=== PATIENT | female | born 1965 | race Caucasian/White ===

== ENCOUNTER 2016-09-08 12:58 | Emergency (ER) | payer BC ==
[2016-09-08 13:18] VITALS: TEMP 97.9; BMI 22.1
[2016-09-08] MEDS ORDERED: METOCLOPRAMIDE HCL INJECTION 10 MG/2 ML VIAL IVPUSH ONE (13:47)
[2016-09-08] MEDS ORDERED: SODIUM CHLORIDE 1,000 ML IV STA (13:47)
--- NOTE | 2016-09-08 13:52 | PDOC ---
History of Present Illness - General Chief Complaint: Migraine Headache Stated Complaint: HEADACHE Time Seen by Provider: 09/08/16 13:35 History Source: Patient Exam Limitations: No Limitations - History of Present Illness Initial Comments: 09/08/16 13:51 Patient is a 51 year old female with PMH of migraine headaches who presents to ED with headache. Patient has had headache for last 5 days, increasing in severity. The pain is concentrated at her left temporal region, with shooting pains down towards the back of her head, ears and "back of my throat". She has mild photophobia, but better than with her usual migraines. She is concerned because usual migraines (which she has had for 40 years) are diffuse, not as severe and last <3 days. She usually has aura symptoms as well (severe photophobia, smells, dark spots), but does not at present. 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 Denies fever, chills, abdominal pain, changes in BM, visual changes or shortness of breath. Past History - Travel Traveled outside of the country in the last 30 days: No Close contact w/someone who was outside of country & ill: No - Past Medical History Allergies/Adverse Reactions: Allergies Allergy/AdvReac Type Severity Reaction Status Date / Time No Known Allergies Allergy Verified 09/08/16 13:14 Home Medications: Ambulatory Orders Rizatriptan Benzoate [Maxalt] 10 mg PO TID 09/08/16 Other medical history: Migraines - Family Disease History Family Disease History: Other: Father (migraines), Mother (migraines) - Immunization History Immunization Up to Date: Yes - Psycho/Social/Smoking Cessation Hx Suicidal Ideation: No Smoking History: Never smoked Hx Alcohol Use: No Drug/Substance Use Hx: No Review of Systems - Review of Systems Able to Perform ROS?: Yes Is the patient limited Mongolian proficient: No Constitutional: No: Chills, Fever, Weakness HEENTM: No: Eye Pain, Blurred Vision, Tearing, Recent change in vision, Ear Pain , Ear Discharge, Throat Pain, Difficulty Swallowing Respiratory: Yes: Cough. No: SOB with Exertion, Wheezing, Productive cough Cardiac (ROS): No: Chest Pain, Edema, Lightheadedness ABD/GI: Yes: Nausea. No: Constipated, Diarrhea, Vomiting : No: Burning, Dysuria Musculoskeletal: No: Back Pain, Muscle Weakness Integumentary: No: Bruising, Change in Color, Erythema Neurological: Yes: Headache. No: Numbness, Paresthesia, Seizure, Tingling, Tremors, Unsteady Gait All Other Systems: Reviewed and Negative *Physical Exam - Vital Signs Last Vital Signs Temp Pulse Resp BP Pulse Ox 97.9 F 86 16 147/75 100 09/08/16 13:14 09/08/16 13:14 09/08/16 13:14 09/08/16 13:14 09/08/16 13:14 - Physical Exam General Appearance: Yes: Nourished, Appropriately Dressed HEENT: positive: EOMI, ARTURO, Pharynx Normal, Other (no sinus tenderness, no rhinorrhea, no tearing at either eye) Neck: positive: Trachea midline, Normal Thyroid, Supple Respiratory/Chest: positive: Lungs Clear, Normal Breath Sounds Cardiovascular: positive: Regular Rhythm, Regular Rate, S1, S2 Gastrointestinal/Abdominal: positive: Normal Bowel Sounds, Flat, Soft Musculoskeletal: positive: Normal Inspection Extremity: positive: Normal Inspection, Normal Range of Motion Integumentary: positive: Normal Color, Dry, Warm 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 Ordered IVF 1 liter, Reglan and NC O2. 09/08/16 15:[address] (-) for any acute pathology or sinusitis. Headache has improved, but only mildly. Will give Imitrex and re-assess in a half hour. 09/08/16 16:35 Patient states pain resolved with Imitrex SQ shot. Will discharge with instructions to f/u with her neurologist. *DC/Admit/Observation/Transfer Diagnosis at time of Disposition: Migraine headache - Discharge Dispostion Disposition: HOME Condition at time of disposition: Improved Admit: No - Patient Instructions Additional Instructions: Followup with your neurologist/headache specialist Stay hydrated and return to regular migraine regimen once home.
[2016-09-08] MEDS ORDERED: METOCLOPRAMIDE HCL INJECTION 10 MG/2 ML VIAL ONE (14:05)
--- NOTE | 2016-09-08 14:05 | PDOC ---
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 Patient had gradual onset of her classic migraine beginning 5 days ago. Her migraines typically last 2-3 days and she was taking her usual ibuprofen and Maxalt with some relief. Since yesterday, her overall migraine has improved but she now presents for evaluation of lancinating and sharp left temporal headaches that are intermittent. No fevers or chills, no trauma, no focal neurological deficits. - Physicial Exam PE: 09/08/16 14:04 Afebrile here. 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 No evidence of infection. CT head IV fluids, oxygen, Reglan Reassess and dispo accordingly
[2016-09-08] MEDS ORDERED: SUMAtriptan SUCCINATE 50 MG TABLET PO SCH (16:00)
[2016-09-08] MEDS ORDERED: SUMAtriptan SUCCINATE 50 MG TABLET ONE (16:04)
[2016-09-08] MEDS ORDERED: SUMATRIPTAN SUCCINATE 6 MG/0.5 ML VIAL SQ ONE (16:05)
[2016-09-08] MEDS ORDERED: SUMATRIPTAN SUCCINATE 6 MG/0.5 ML VIAL ONE (16:06)
[2016-09-08 17:11] VITALS: BP 136/72; PULSE 82
== END 2016-09-08 17:12 | disposition home or self-care (01) ==
LOC: JER 12:58
PROC: 3E033GC Introduction of Other Therapeutic Substance into Peripheral Vein, Percutaneous Approach (ICD-10-PCS; principal; 2016-09-08)
PROC: 3E0337Z Introduction of Electrolytic and Water Balance Substance into Peripheral Vein, Percutaneous Approach (ICD-10-PCS; 2016-09-08)
DX: G43.909 Migraine, unspecified, not intractable, without status migrainosus (principal)
CPT/HCPCS: 70450-TC; 84703; 99282-25

== ENCOUNTER 2018-10-08 17:26 | Emergency (ER) | payer BC ==
[2018-10-08 17:39] VITALS: BMI 23.9
[2018-10-08] MEDS ORDERED: ONDANSETRON 4 MG/2 ML VIAL IVPB ONE (18:03)
[2018-10-08] MEDS ORDERED: SODIUM CHLORIDE 1,000 ML IV STA ×2 (18:04→19:28)
[2018-10-08] MEDS ORDERED: ONDANSETRON 4 MG/2 ML VIAL ONE (18:29)
--- NOTE | 2018-10-08 18:30 | PDOC ---
History of Present Illness - General Chief Complaint: Nausea/Vomiting Stated Complaint: SENT BY PCP/VOMITING/WEAKNESS Time Seen by Provider: 10/08/18 18:01 - History of Present Illness Initial Comments: 10/08/18 18:29 53 yo F with h/o migraine disorder who p/w nausea, vomiting, and myalgias. Patient reports acute onset of widespread myalgias/muscle aches, diffuse frontal , non pulsating headache, and 2 episodes of NBNB emesis. Symptom onset while at work. No identifiable triggers or alleviators. Headache not typical of regular headaches. Patient denies PARADA, vision change, palpitations, cough, wheezing, orthopena, PND , leg swelling/pain, N/V, F,C, CP, SOB, urinary complaints, hematuria, BPR, abdominal pain, diarrhea, constipation, lightheadedness, weakness, sensory changes. PMHx: as noted above ROS: as noted SHx: Denies IVDA Allergies: NKDA Past History - Past Medical History Allergies/Adverse Reactions: Allergies Allergy/AdvReac Type Severity Reaction Status Date / Time No Known Allergies Allergy Verified 10/08/18 17:39 Home Medications: Ambulatory Orders Bupropion HCl [Wellbutrin Sr] 200 mg PO DAILY 10/08/18 [place] Carbonate [Eskalith -] 750 mg PO DAILY 10/08/18 Pantoprazole Sodium 40 mg PO DAILY 10/08/18 COPD: No - Family Disease History Family Disease History: Other: Father (migraines), Mother (migraines) - Immunization History Immunization Up to Date: Yes - Suicide/Smoking/Psychosocial Hx Smoking History: Never smoked Hx Alcohol Use: No Drug/Substance Use Hx: No Review of Systems - Review of Systems Comments:: 10/08/18 18:29 GENERAL/CONSTITUTIONAL: No fever or chills. No weakness. HEAD, EYES, EARS, NOSE AND THROAT: No change in vision. No ear pain or discharge. No sore throat. CARDIOVASCULAR: No chest pain or shortness of breath RESPIRATORY: No cough, wheezing, or hemoptysis. GASTROINTESTINAL: +nausea, vomiting. No diarrhea or constipation. GENITOURINARY: No dysuria, frequency, or change in urination. MUSCULOSKELETAL: No joint or muscle swelling or pain. No neck or back pain. SKIN: No rash NEUROLOGIC:+ headache. No vertigo, loss of consciousness, or change in strength/ sensation. ENDOCRINE: No increased thirst. No abnormal weight change HEMATOLOGIC/LYMPHATIC: No anemia, easy bleeding, or history of blood clots. ALLERGIC/IMMUNOLOGIC: No hives or skin allergy. *Physical Exam - Vital Signs Last Vital Signs Temp Pulse Resp BP Pulse Ox 98.4 F 74 18 105/67 100 10/08/18 17:36 10/08/18 17:36 10/08/18 17:36 10/08/18 17:36 10/08/18 17:36 - Physical Exam Comments: 10/08/18 18:29 GENERAL: Awake, alert, and fully oriented, in no acute distress HEAD: No signs of trauma, normocephalic, atraumatic EYES: PERRLA, EOMI, sclera anicteric, conjunctiva clear ENT: Auricles normal inspection, hearing grossly normal, nares patent, oropharynx clear without exudates. Moist mucosa NECK: Normal ROM, supple, no lymphadenopathy, JVD, or masses LUNGS: No distress, speaks full sentences, clear to auscultation bilaterally HEART: Regular rate and rhythm, normal S1 and S2, no murmurs, rubs or gallops, peripheral pulses normal and equal bilaterally. ABDOMEN: Soft, nontender, normoactive bowel sounds. No guarding, no rebound. No masses EXTREMITIES : Normal inspection, Normal range of motion, no edema. No clubbing or cyanosis. NEUROLOGICAL: Cranial nerves II through XII grossly intact. Normal speech, normal gait, no focal sensorimotor deficits SKIN: Warm, Dry, normal turgor, no rashes or lesions noted Moderate Sedation - Procedure Monitoring Vital Signs: Procedure Monitoring Vital Signs Temperature 98.4 F 10/08/18 17:36 Pulse Rate 74 10/08/18 17:36 Respiratory Rate 18 10/08/18 17:36 Blood Pressure 105/67 10/08/18 17:36 O2 Sat by Pulse Oximetry (%) 100 10/08/18 17:36 ED Treatment Course - LABORATORY CBC & Chemistry Diagram: 10/08/18 18:15 10/08/18 18:15 Medical Decision Making - Medical Decision Making 10/08/18 18:30 53 yo F with h/o migraine disorder who p/w nausea, vomiting, and myalgias. Vitals wnl, aF, A&Ox3. Physical exam unremarkable. Will consider viral prodrome , flu, migraine disorder. Will assess for hypoglycemia, cardiac dysarrythmia, electrolyte abnml, metabolic and toxic derangements, acid-base disturbances, infection. Will provide IV anti-emetic, analgesia, and fluid control. Ed Course: 10/08/18 18:40 NS 1 L , Zofran 4 mg , Tylenol 1000 mg 10/08/18 19:10 EKG: NSR with absent TOMASZ, STD. Normal axis. QTc 455. Nml R wave progression CBC,CMP: Unremarkable Flu: Neg 10/08/18 19:25 PARADA slightly improved Tolerating PO intake Toradol, NS 500 cc 10/08/18 20:41 Patient improved.Stable for d/c with return precautions. *DC/Admit/Observation/Transfer Diagnosis at time of Disposition: Nausea & vomiting Qualifiers: Vomiting type: unspecified Vomiting Intractability: non-intractable Qualified Code(s): R11.2 - Nausea with vomiting, unspecified - Discharge Dispostion Disposition: HOME Condition at time of disposition: Stable Decision to Admit order: No - Referrals Referrals: Pema Samuels MD [Primary Care Provider] - - Patient Instructions Printed Discharge Instructions: DI for Nausea -- Adult Additional Instructions: Please return to the emergency department with any new or worsening symptoms or concerns. Please follow up with your primary care physician within 72 hours. - Post Discharge Activity Forms/Work/School Notes: Back to Work - Attestations Physician Attestion: 10/08/18 18:29 I attest to the information provided in this note.
[2018-10-08 18:31] LABS: BASO % 0.5 % (0-2.0); EOS % 0.3 % (0-4.5); HEMATOCRIT 41.7 % (32.4-45.2); HEMOGLOBIN 14.2 GM/dL (10.7-15.3); LYMPH % 3.7 % (8-40); MCH 31.6 pg (25.7-33.7); MEAN PLT VOLUME 9.6 fl (7.5-11.1); NEUT % 92.5 % (42.8-82.8); PLATELET COUNT 200 K/MM3 (134-434); RBC 4.48 M/mm3 (3.60-5.2); RDW 14.9 % (11.6-15.6); WHITE BLOOD COUNT 5.9 K/mm3 (4.0-10.0)
[2018-10-08] MEDS ORDERED: ACETAMINOPHEN 1000 MG/100 ML VIAL (NON FORMULARY) IVPB ONE (18:38)
[2018-10-08] MEDS ORDERED: ACETAMINOPHEN INJECTION 100 ML IVPB ONE (18:51)
[2018-10-08 18:53] LABS: ALBUMIN 3.9 g/dl (3.4-5.0); ALK PHOS 116 U/L (45-117); ANION GAP 9 MMOL/L (8-16); BILIRUBIN,TOTAL 0.6 mg/dL (0.2-1); BLOOD UREA NITROGEN 24 mg/dL (7-18); CHLORIDE 108 mmol/L (98-107); CO2 24 mmol/L (21-32); GLUCOSE,RANDOM 116 mg/dL (74-106); SGOT/AST 14 U/L (15-37); SGPT/ALT 21 U/L (13-61); SODIUM 141 mmol/L (136-145); TOT PROT 6.8 g/dl (6.4-8.2)
--- NOTE | 2018-10-08 19:15 | PDOC ---
Attending Attestation - HPI HPI: 10/08/18 19:40 The patient is a 53 year old female with a PMH of migraine who presents to the ER with frontal headache, nausea, 2 episodes of nonbloody nonbilious vomit, and generalized body aches today. Denies any alleviating or exacerbating factors. Patient denies fever, chills, N/V/D/C, urinary complaints, abdominal pain, lightheadedness, dizziness, weakness, sensory changes. Allergies: NKDA Social Hx: None reported. SHx: Denies - Physicial Exam PE: 10/08/18 20:09 ADULT EXAM GENERAL: Awake, alert, and fully oriented, in no acute distress HEAD: No signs of trauma EYES: PERRLA, EOMI, sclera anicteric, conjunctiva clear ENT: Auricles normal inspection, hearing grossly normal, nares patent, oropharynx clear without exudates. Moist mucosa NECK: Normal ROM, supple, no lymphadenopathy, JVD, or masses LUNGS: Breath sounds equal, clear to auscultation bilaterally. No wheezes, and no crackles HEART: Regular rate and rhythm, normal S1 and S2, no murmurs, rubs or gallops ABDOMEN: Soft, nontender, normoactive bowel sounds. No guarding, no rebound. No masses EXTREMITIES: Normal range of motion, no edema. No clubbing or cyanosis. No cords, erythema, or tenderness NEUROLOGICAL: Cranial nerves II through XII grossly intact. Normal speech, normal gait SKIN: Warm, Dry, normal turgor, no rashes or lesions noted. <Dorcas Fay - Last Filed: 10/08/18 20:09> - Resident Resident Name: Stephen Michelle - Medical Decision Making 10/08/18 20:45 PT presents to the ED complaining of generalized malaise, nausea and vomiting, body aches and mild headaches that began yesterday. feels improved in the ED after IVF and pain and nausea control. Initial differential included flu, other viral syndrome, dehydration. Will discharge home with instructions to follow up with PMD. 10/08/18 20:46 <Trinidad Rankin - Last Filed: 10/08/18 20:48>
[2018-10-08] MEDS ORDERED: KETOROLAC TROMETHAMINE 30 MG/1 ML VIAL IVPUSH ONE (19:25)
[2018-10-08] MEDS ORDERED: KETOROLAC TROMETHAMINE 30 MG/1 ML VIAL ONE (19:28)
[2018-10-08 19:41] LABS: PLATELET ESTIMATE ADEQUATE
[2018-10-08 20:57] VITALS: BP 112/66; PULSE 72; TEMP 96.5
[2018-10-08] MEDS ORDERED: METOCLOPRAMIDE HCL INJECTION 10 MG/2 ML VIAL ONE (21:00)
[2018-10-08] MEDS: METOCLOPRAMIDE HCL INJECTION 10 MG/2 ML VIAL IVPUSH ONE ×2 (21:04→21:12)
--- NOTE | 2018-10-09 11:21 | EKG ---
Test Reason : Blood Pressure : / mmHG Vent. Rate : 068 BPM Atrial Rate : 068 BPM P-R Int : 164 ms QRS Dur : 094 ms QT Int : 428 ms P-R-T Axes : 074 -07 070 degrees QTc Int : 455 ms NORMAL SINUS RHYTHM NORMAL ECG NO PREVIOUS ECGS AVAILABLE Confirmed by MAURO GUTIÉRREZ MD ([id number]) on 10/09/2018 11:20:45 AM Referred By: Confirmed By:MAURO GUTIÉRREZ MD
== END 2018-10-08 21:12 | disposition home or self-care (01) ==
LOC: JER 17:26
PROC: 3E0337Z Introduction of Electrolytic and Water Balance Substance into Peripheral Vein, Percutaneous Approach (ICD-10-PCS; principal; 2018-10-08)
PROC: 3E033GC Introduction of Other Therapeutic Substance into Peripheral Vein, Percutaneous Approach (ICD-10-PCS; 2018-10-08)
PROC: 3E033GC Introduction of Other Therapeutic Substance into Peripheral Vein, Percutaneous Approach (ICD-10-PCS; 2018-10-08)
PROC: 3E0333Z Introduction of Anti-inflammatory into Peripheral Vein, Percutaneous Approach (ICD-10-PCS; 2018-10-08)
PROC: 3E033NZ Introduction of Analgesics, Hypnotics, Sedatives into Peripheral Vein, Percutaneous Approach (ICD-10-PCS; 2018-10-08)
DX: G43.909 Migraine, unspecified, not intractable, without status migrainosus (principal); R11.2 Nausea with vomiting, unspecified
CPT/HCPCS: 36415; 80053; 80178; 82550; 84484; 85025; 87804; 93005; 93010; 99283-25; J0131; J7030